=== PATIENT | male | born 1990 | race Caucasian/White ===

== ENCOUNTER 2017-10-31 01:59 | Emergency (ER) | payer OTHER ==
[~2017-10-31] VITALS: Ht 180.3 cm; Wt 117.0 kg
[2017-10-31 02:33] VITALS: Ht 180.3 cm; Wt 117.0 kg
[2017-10-31 05:40] VITALS: BP 126/76
== END 2017-10-31 05:40 | disposition home or self-care (01) ==
LOC: ED 01:59
DX: S01.112A Laceration without foreign body of left eyelid and periocular area, initial encounter (principal); X58.XXXA Exposure to other specified factors, initial encounter; Y93.52 Activity, horseback riding; Y92.89 Other specified places as the place of occurrence of the external cause; Y99.8 Other external cause status
CPT/HCPCS: 90715; J2001